=== PATIENT | male | born 1995 | race Caucasian/White ===

== ENCOUNTER 2017-12-02 12:35 | Outpatient (CLI) | payer OTHER ==
--- NOTE | 2017-12-02 15:31 | Diagnostic Imaging Report ---
JORDEN HODGSON [facility] [address] [address] [facility] [address] [place] [address]. [id number] Report Submission Date: Dec 02, 2017 1:25:34 PM CDT Patient Study Name: NESTOR GREENE Date: Dec 02, 2017 12:42:30 PM CDT Modality Type: DX Gender: M Description: SHOULDER : 89 Institution: [facility] Physician: JORDEN HDOGSON Examination: Plain film left shoulder History: LEFT SHOULDER PAIN AFTER POPPED DURING BASKET BALL; TINGLY DOWN ARM (Hx ) Comparison exams: None provided Findings: 3 views of the left shoulder demonstrate normal cortical margins. No evidence for fracture or dislocation. No soft tissue abnormality Impression: No acute osseous process. Electronically signed on Dec 02, 2017 1:25:34 PM CDT by: Elliott GUTIÉRREZ
--- NOTE | 2017-12-02 15:32 | Diagnostic Imaging Report ---
JORDEN HODGSON [facility] [address] [facility] [address] [place] [address]. [id number] Report Submission Date: Dec 02, 2017 1:26:40 PM CDT Patient Study Name: NESTOR GREENE Date: Dec 02, 2017 12:46:39 PM CDT Modality Type: DX Gender: M Description: SPINE : 89 Institution: [facility] Physician: JORDEN HODGSON Examination: Cervical spine History: LEFT SHOULDER PAIN AFTER POPPED DURING BASKET BALL; TINGLY DOWN ARM (Hx ) Comparison exams: None available Findings: 3 views of the cervical spine demonstrate normal height and alignment. No anterior compression. No abnormal listhesis. No odontoid abnormality. No prevertebral abnormality Impression: No acute osseous abnormality Electronically signed on Dec 02, 2017 1:26:40 PM CDT by: Elliott GUTIÉRREZ
--- NOTE | 2017-12-02 15:32 | Diagnostic Imaging Report ---
JORDEN HODGSON [facility] [address] [address] [facility] [address] [address] Report Submission Date: Dec 02, 2017 1:27:59 PM CDT Patient Study Name: NESTOR GREENE Date: Dec 02, 2017 12:55:08 PM CDT Modality Type: DX Gender: M Description: SPINE : 89 Institution: [facility] Physician: JORDEN HODGSON Examination: Plain film thoracic spine History: LEFT SHOULDER PAIN AFTER POPPED DURING BASKET BALL; TINGLY DOWN ARM (Hx ) Findings: 3 views of the thoracic spine demonstrate normal height. No anterior compression. No soft tissue abnormalities. Impression: No acute osseous process. Electronically signed on Dec 02, 2017 1:27:59 PM CDT by: Elliott GUTIÉRREZ
== END 2017-12-02 12:36 ==
LOC: RAD 12:35
PROVIDERS: ATTEND Family Medicine
DX: M25.512 Pain in left shoulder (principal); R20.2 Paresthesia of skin
CPT/HCPCS: 72040; 72072; 73030